=== PATIENT | male | born 1985 | race Hispanic/Latino ===

== ENCOUNTER → 2024-06-06 14:18 | Outpatient (CLI) | payer SELFPAY ==
[2024-06-06 16:33] LABS: Urine Chlamydia NOT DETECTED; Urine N gonorrhoeae NOT DETECTED
== END ==
PROVIDERS: Visit Provider Nurse Practitioner Family
DX: R30.0 Dysuria (principal); N48.89 Other specified disorders of penis
CPT/HCPCS: 87086; 87210; 87491; 87591

== ENCOUNTER → 2024-06-06 15:03 | Outpatient (CLI) | payer SELFPAY ==
[2024-06-07 15:21] LABS: Hepatitis B Surface Antigen NEGATIVE s/c (NEGATIVE)
[2024-06-07 15:37] LABS: HIV 1 & 2 Ab/Ag 4th Gen Combo NEGATIVE (NEGATIVE); Hep C Virus Ab w/Reflex Quant NEGATIVE s/c (NEGATIVE)
[2024-06-08 04:12] LABS: RPR Screen Non Reactive (Non Reactive)
== END ==
PROVIDERS: Referring Provider Nurse Practitioner Family; Visit Provider Nurse Practitioner Family
DX: Z72.51 High risk heterosexual behavior (principal); R30.0 Dysuria; N48.89 Other specified disorders of penis
CPT/HCPCS: 36415; 86592; 86695; 86696; 86803; 87086; 87210; 87340; 87389; 87491; 87591

== ENCOUNTER 2025-01-10 22:41 | Emergency (ER) | payer SELFPAY ==
[2025-01-10 22:52] VITALS: PULSE 108; O2SAT 97
--- NOTE | 2025-01-10 22:53 | DI.RAD.S_ITS ---
PROCEDURE: XR CHEST 1V INDICATIONS: Chest Pain TECHNIQUE: One view of the chest was acquired. COMPARISON: None. FINDINGS: Surgical changes and devices: None. Lungs and pleura: Lungs are clear. No pneumothorax. Question trace left pleural effusion. Mediastinum: Mediastinal contours appear normal. Heart size is normal. Bones and chest wall: No suspicious bony lesions. Overlying soft tissues appear unremarkable. IMPRESSION: Question trace left pleural effusion. Dictated by: Yohannes Brandon M.D. on 01/11/2025 at 0:52 Approved by: Yohannes Brandon M.D. on 01/11/2025 at 0:52
[2025-01-10 22:54] VITALS: BP 163/99; PULSE 110; RESP 26; TEMP 37; O2SAT 94; BMI 41.3
--- NOTE | 2025-01-10 22:58 | EKG_ITS ---
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
[2025-01-10 23:02] VITALS: PULSE 104; O2SAT 96
[2025-01-10] MEDS: ASPIRIN 81 MG CHEW TAB 324 MG PO (23:24)
[2025-01-10 23:26] LABS: Add Manual Diff / Slide Review NO; Hematocrit 41.7 % (41-53); Hemoglobin 14.3 g/dL (13.5-17.5); Lymphocytes Absolute Auto 2300 /uL (1100-4500); Mean Corpuscular HGB Conc 34.3 % (30-36); Mean Corpuscular Hemoglobin 30.5 PG (26-34); Mean Corpuscular Volume 88.8 fL (80-100); Platelet Count 314 X10^3/uL (150-400)
[2025-01-10 23:30] VITALS: PULSE 107; O2SAT 95
[2025-01-10 23:30] LABS: Alanine Aminotransferase 63 IU/L (<50); Albumin 4.4 g/dL (3.5-5.0); Albumin Globulin Ratio 1.3 (1.0-2.8); Alkaline Phosphatase 72 U/L (38-126); Blood Urea Nitrogen 14 mg/dL (9-20); Calcium 8.7 mg/dL (8.4-10.2); Carbon Dioxide 24 mmol/L (22-32); Chloride 106 mmol/L (98-107); Creatine Kinase 281 U/L (55-170); Estimated Glomerular Filt Rate > 60 mL/min (>60); Globulin 3.5 g/dL (1.7-4.1); Glucose 150 mg/dL (70-99); HEMOLYSIS 17 (0-50); Lipase 232 U/L (23-300); Magnesium 1.9 mg/dL (1.6-2.3); Potassium 4.1 mmol/L (3.4-5.1); Sodium 139 mmol/L (137-145); Total Protein 7.9 g/dL (6.3-8.2)
[2025-01-10 23:41] LABS: NT-proBNP (BNP-Adult 18+) < 20 pg/mL (<125); Troponin I < 0.012 ng/mL (0.01-0.034)
--- NOTE | 2025-01-10 23:41 | ED_ITS ---
HPI - Chest Pain General Chief Complaint: Chest Pain Stated Complaint: Back Pain, R Side Pain Time Seen by Provider: 01/10/25 23:04 Source: patient Mode of arrival: Ambulatory History of Present Illness HPI narrative: 39-year-old male with no prior history of reactive airways or blood clots or heart problems, complains of 2 days duration right anterolateral sharp chest pain, worse with deep inspiration, some associated shortness of breath. No trauma injury or new activities. 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 No history of asthma or inhalers. No medications tried for this discomfort. Co-worker with recent chest cold symptoms. Patient denies cough and fevers. No new activity at his work. No blood thinner medications, no prior history of blood clotting, no leg pain or swelling symptoms. No arm pain or swelling symptoms. Related Data Previous Rx's ?Medication ?Instructions ?Recorded naproxen 500 mg tablet 500 mg PO BID 7 days #14 tab s 01/11/25 Allergies Allergy/AdvReac Type Severity Reaction Status Date / Time No Known Drug Allergies Allergy Verified 01/10/25 22:54 Patient History Social History Smoking Status: Never smoker Smoking Status: Never smoker Exam Narrative Exam Narrative: GENERAL: Well-developed patient, in mild distress. HEAD: Atraumatic. Normocephalic. EYES: Pupils equal round and reactive. Extraocular motions intact. No scleral icterus. No injection or drainage. ENT: Nose without bleeding, purulent drainage. Throat without erythema, tonsillar hypertrophy or exudate. Airway patent. NECK: Trachea midline. Non tender CARDIOVASCULAR: Regular rate and rhythm without murmurs, gallops, or rubs. RESPIRATORY: Clear to auscultation. Breath sounds equal bilaterally. No wheezes, rales, or rhonchi. Right lateral posterior chest wall discomfort without crepitance or skin lesions, no fluctuance, no vesicles, no erythema or bruising. No paradoxical chest wall motion. No retractions or respiratory distress. GASTROINTESTINAL: Abdomen soft, non-tender, nondistended. EXTREMITIES: No edema or joint tenderness. BACK: Nontender without deformity or crepitance. No flank tenderness. NEURO: AOx3. Motor functions grossly nonfocal. SKIN: No rash or erythema of visible areas Initial Vital Signs Initial Vital Signs: Vital Signs Pulse Rate 108 H 01/10/25 22:52 Pulse Oximetry 97 01/10/25 22:52 Scores HEART Score Heart Score history: Slightly Suspicious Heart Score EKG: Normal Heart Score Age: < 45 years old Heart Score risk factors: No known risk factors Heart Score troponin: < or = to normal limit Heart Score Total: 0 WellsCarey Criteria for PE Clinical signs and symptoms of DVT: No PE is #1 Dx or equally likely: No Heart rate > 100: Yes Immobilization at least 3 days or surg in previous 4 weeks: No History of PE or DVT: No Hemoptysis: No Malignancy w/Treatment within 6 months or palliative: No Wells' PE Score total: 1.5 Course Orders Ordered: ED Orders 01/10/25 22:53 XR chest 1V Stat EKG-12 Lead Stat 01/10/25 23:10 Complete Blood Count AUTO DIFF Stat Comprehensive Metabolic Panel Stat D Dimer Stat Lipase Stat Magnesium Stat NT-proBNP (BNP-Adult 18+) Stat Troponin & CK Cardiac Panel Stat 01/11/25 00:15 Covid-19 + FLU A/B + RSV - PCR Stat 01/11/25 01:04 CT angio chest PE protocol Stat 01/11/25 01:05 CT abdomen pelvis w con Stat 01/11/25 01:45 Troponin I Urgent 01/11/25 02:42 US periph venous low extrem bi Stat Discontinued Medications Albuterol (Albuterol Hfa Prepack) 1 box MISC DIRECTED ONE Stop: 01/11/25 02:56 Last Admin: 01/11/25 03:34 Dose: 1 box Documented By: FABIOLA Aspirin (Aspirin 81 Mg Chew Tab) 324 mg PO NOW ONE Stop: 01/10/25 22:54 Last Admin: 01/10/25 23:24 Dose: 324 mg Documented By: FABIOLA Sodium Chloride (Normal Saline 0.9%) 1,000 mls @ 1,000 mls/hr IV BOLUS ONE Stop: 01/11/25 02:04 Last Infusion: 01/11/25 02:43 Dose: Infused Documented By: Admin: 01/11/25 01:31 Dose: 1,000 mls/hr Documented By: FABIOLA Ketorolac Tromethamine (Ketorolac 30 Mg/Ml Vial) 15 mg IV NOW ONE Stop: 01/11/25 02:57 Last Admin: 01/11/25 03:10 Dose: 15 mg Documented By: FABIOLA Vital Signs Vital signs: Vital Signs - 8 hr 01/10/25 22:52 01/10/25 22:54 01/10/25 23:02 Temperature 98.6 F Pulse Rate 108 H 110 H 104 H Respiratory Rate 26 H Blood Pressure 163/99 H Pulse Oximetry 97 94 96 Oxygen Delivery Method Room Air 01/10/25 23:30 01/11/25 00:00 01/11/25 00:14 Temperature Pulse Rate 107 H 103 H 99 H Respiratory Rate Blood Pressure Pulse Oximetry 95 96 96 Oxygen Delivery Method 01/11/25 00:14 01/11/25 00:30 01/11/25 01:00 Temperature Pulse Rate 95 H 96 H Respiratory Rate Blood Pressure 158/81 H Pulse Oximetry 95 95 Oxygen Delivery Method 01/11/25 01:42 01/11/25 01:43 01/11/25 01:43 Temperature Pulse Rate 96 H 92 H Respiratory Rate Blood Pressure 126/66 Pulse Oximetry 96 Oxygen Delivery Method 01/11/25 02:00 01/11/25 02:00 01/11/25 02:30 Temperature Pulse Rate 90 77 Respiratory Rate Blood Pressure 126/72 Pulse Oximetry 96 94 Oxygen Delivery Method 01/11/25 02:30 01/11/25 03:00 01/11/25 03:00 Temperature Pulse Rate 87 Respiratory Rate Blood Pressure 115/64 121/59 L Pulse Oximetry 96 Oxygen Delivery Method 01/11/25 03:23 01/11/25 03:31 01/11/25 03:33 Temperature Pulse Rate 87 84 Respiratory Rate Blood Pressure 119/49 L Pulse Oximetry 96 97 Oxygen Delivery Method 01/11/25 04:00 01/11/25 04:00 Temperature Pulse Rate 84 Respiratory Rate Blood Pressure 110/60 Pulse Oximetry 95 Oxygen Delivery Method MDM - Chest Pain Lab Data Attestation: I reviewed the patient's lab results. Lab results narrative: White blood cell count 13,000, hemoglobin 14.3, platelets adequate. Glucose 150. Normal renal function, serum CO2, electrolytes. Slight ALT elevation, other liver functions normal. Lipase normal. Troponin negative/unmeasurable. BNP negative/unmeasurable. D-dimer 1767 elevated. 01/10/25 23:10 01/10/25 23:10 Labs: Lab Results 01/10/25 01/11/25 01/11/25 Range/Units 23:10 00:15 01:45 WBC 13.0 H (4.5-11.0) X10^3/uL RBC 4.69 (4.5-5.9) X10^6/uL Hgb 14.3 (13.5-17.5) g/dL Hct 41.7 (41-53) % MCV 88.8 (80-100) fL MCH 30.5 (26-34) PG MCHC 34.3 (30-36) % RDW 13.7 (11.6-14.8) % Plt Count 314 (150-400) X10^3/uL Neut % (Auto) 68.8 (50-75) % Lymph % (Auto) 17.6 L (25-40) % [place] % (Auto) 9.6 (3-14) % Eos % (Auto) 2.7 (2-4) % Baso % (Auto) 1.3 (0-2) % Neut # (Auto) 9000 H (1055-7407) /uL Lymph # (Auto) 2300 (8181-2326) /uL [place] # (Auto) 1300 H (0-900) /uL Eos # (Auto) 300 (0-450) /uL Baso # (Auto) 200 H (0-100) /uL D-Dimer 1767 H (<500) ng/ml Sodium 139 (137-145) mmol/L Potassium 4.1 (3.4-5.1) mmol/L Chloride 106 (98-107) mmol/L Carbon Dioxide 24 (22-32) mmol/L BUN 14 (9-20) mg/dL Creatinine 0.96 (0.66-1.25) mg/dL Estimated GFR > 60 (>60) mL/min BUN/Creatinine Ratio 14.6 (6-22) Glucose 150 H (70-99) mg/dL Calcium 8.7 (8.4-10.2) mg/dL Magnesium 1.9 (1.6-2.3) mg/dL Total Bilirubin 1.2 (0.2-1.3) mg/dL AST 44 (17-59) IU/L ALT 63 H (<50) IU/L Alkaline Phosphatase 72 (38-126) U/L Total Creatine Kinase 281 H (55-170) U/L Troponin I < 0.012 < 0.012 (0.01-0.034) ng/mL NT-Pro-B Natriuret Pep < 20 (<125) pg/mL Total Protein 7.9 (6.3-8.2) g/dL Albumin 4.4 (3.5-5.0) g/dL Globulin 3.5 (1.7-4.1) g/dL Albumin/Globulin Ratio 1.3 (1.0-2.8) Lipase 232 (23-300) U/L SARS-CoV-2 (PCR) Negative (Negative) Influenza A (RT-PCR) Flu a negative (NEGATIVE) Influenza B (RT-PCR) Flu b negative (NEGATIVE) RSV (PCR) Negative (Negative) Imaging Data CTA chest PE protocol: Radiologist's Impression: [address] [address] [address] Scan Report Signed Patient: Barrie Stauffer MR#: [id number] : 1985 Acct:[id number] Age/Sex: 39 / M Date of Service: 01/11/25 Loc: ED Accession Number: [id number] Procedure: CT angio chest PE protocol Ordering Provider: Hansel Mercedes MD PROCEDURE: CT ANGIO CHEST PE PROTOCOL INDICATIONS: right pleuritic CP, Ddimer 1700s TECHNIQUE: After the administration of intravenous contrast, 2 mm thick sections acquired from the pulmonary apices to the posterior costophrenic angles. 3-dimensional maximum intensity projection (MIP) coronal and sagittal reformats were then acquired through the thorax. For radiation dose reduction, the following was used: automated exposure control, adjustment of mA and/or kV according to patient size. COMPARISON: [facility], CT, CT ABDOMEN PELVIS W CON, 01/11/2025, 1:14. FINDINGS: Image quality: Diagnostic. Pulmonary arteries: Pulmonary arteries are normal in size, and demonstrate no intraluminal filling defects to suggest central pulmonary embolism. Lower Neck: No enlarged lymph nodes. Thyroid: No thyroid nodules which require sonographic follow up, per consensus guidelines. Axillae: No enlarged lymph nodes. Chest Wall: Unremarkable. Bones: No suspicious osseous lesion. Lungs and Pleura: No pneumothorax. Trace right pleural fluid. Bibasilar atelectasis and/or scarring. No significant acute airspace opacity. No significant pulmonary nodules are seen. Heart: Heart size is normal. No pericardial effusion. Thoracic Vessels: No aortic aneurysm. No dissection is seen. Mediastinum and [place]: No enlarged lymph nodes. Esophagus: No wall thickening. No hiatal hernia. Upper Abdomen: Dictated separately. IMPRESSION: 1. No pulmonary embolism. 2. Bibasilar atelectasis or scarring. Trace right pleural fluid. Dictated by: Yohannes Brandon M.D. on 01/11/2025 at 2:27 Approved by: Yohannes Brandon M.D. on 01/11/2025 at 2:32 CT abdomen and pelvis with IV contrast: Radiologist's Impression: [place] [address] CT Scan Report Signed Patient: Barrie Stauffer MR#: [id number] : 1985 Acct:[id number] Age/Sex: 39 / M Date of Service: 01/11/25 Loc: ED Accession Number: [id number] Procedure: CT abdomen pelvis w con Ordering Provider: Hansel Mercedes MD PROCEDURE: CT ABDOMEN PELVIS W CON INDICATIONS: right chest flank pain TECHNIQUE: After the administration of intravenous contrast, axial sections acquired from the lung bases to the pubic symphysis. Coronal and sagittal reformats were performed. For radiation dose reduction, the following was used: automated exposure control, adjustment of mA and/or kV according to patient size. COMPARISON: None. FINDINGS: Image quality: Diagnostic. Lower Chest: Bibasilar atelectasis. Trace pleural effusions. Left calcified granuloma. ABDOMEN: Liver: No solid mass. Hepatic steatosis. Gallbladder: Decompressed. No calcified stones. Biliary ducts: No biliary dilation. Pancreas: No ductal dilation. Spleen: Size is within normal limits. Adrenal Glands: No adrenal nodules. Kidneys and Ureters: No hydronephrosis. No solid mass. No complex renal cystic lesion which requires follow up. Stomach and Bowel: Normal colonic caliber, without significant wall thickening. Normal appendix. No diverticulitis. No small bowel obstruction. The stomach is unremarkable. Peritoneum: No abnormal intraperitoneal fluid. No free air. Ventral Wall: No significant ventral hernia. Abdominal Nodes: No retroperitoneal or mesenteric adenopathy by size criteria. Vessels: Aorta and inferior vena cava are normal in size. PELVIS: Pelvic Organs: Unremarkable. Bladder: No bladder wall thickening, accounting for underdistention. Pelvic Nodes: No enlarged lymph nodes. Miscellaneous: No inguinal hernias are seen. Bones: Sclerosis with cystic change at the right femoral neck, (). No cortical disruption. No periosteal reaction. IMPRESSION: 1. No acute inflammatory process identified. 2. Hepatic steatosis. 3. Trace pleural effusions. 4. Sclerosis and cystic change at the right femoral neck. Indeterminate clinical significance. -MRI could be considered for further evaluation. Dictated by: Yohannes Brandon M.D. on 01/11/2025 at 1:54 Approved by: Yohannes Brandon M.D. on 01/11/2025 at 2:01 ECG Data Attestation: I personally reviewed and interpreted this ECG as follows: Interpretation: 2258, sinus tachycardia with rate 104, no obvious ST segment elevation or depression changes. NH 168, QRS 100, QTC 444. 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 DDx consider chest wall/costochondritis, muscular strain, viral illness, reactive airways, pneumonia, pulmonary embolism, ACS, spontaneous pneumothorax, subdiaphragmatic process, other. EKG, chest x-ray, labs pending. IV Toradol. Oral aspirin. Heart score equals 0. PERC rule does not apply, HR>100. Wells criteria 1.5 low risk, but HR>100 noted in context pleuritic chest pain. Send D-dimer. EKG without obvious ischemic changes, does show sinus tachycardia with rate 104. Chest x-ray shows no acute changes, see radiology report. Lab data: White blood cell count [address]474, hemoglobin 14.3, platelets adequate. Glucose 150. Normal renal function, serum CO2, electrolytes. Slight ALT elevation, other liver functions normal. Lipase normal. Troponin negative/unmeasurable. BNP negative/unmeasurable. COVID flu RSV negative. VTE consideration. Wells criteria 1.5 low risk, but heart rate greater than 100 noted in context pleuritic chest pain. D-dimer added, was 1767 elevated. Discussed dimer elevation and tachypnea and tachycardia, concern for pulmonary embolism. Patient expressed understanding, willing to proceed with advanced imaging. CTA chest PE protocol ordered. CTA chest. IMPRESSION: 1. No pulmonary embolism.2. Bibasilar atelectasis or scarring. Trace right pleural fluid. See radiology report. CT abdomen and pelvis with IV contrast. IMPRESSION: 1. No acute inflammatory process identified.2. Hepatic steatosis.3. Trace pleural effusions.4. Sclerosis and cystic change at the right femoral neck. Indeterminate clinical significance. MRI could be considered for further evaluation. See radiology report. Copies of printed CTA/CT reports given to patient, discussed findings. Ultrasound venous Doppler bilateral lower extremities ordered. Ultrasound venous Dopplers also negative for lower extremity DVT. Interval repeat troponin also negative/unmeasurable. Suspect chest wall etiology of discomfort, with subsequent atelectasis. Unclear significance of trace right pleural fluid. Trial of naproxen anti-inflammatory pain medication. Trial of albuterol/spacer 2 puffs 4 times daily and then as needed, dispensed albuterol and spacer from emergency department. Discharged home with family. Advised recheck with PCP later this week. Further workup as an outpatient for now. Return precautions discussed. Discharged home with . Discharge Plan Departure Patient Disposition: Home Clinical Impression: Chest pain, Chest wall pain, Atelectasis Activity Restrictions/Additional Instructions: Right-sided chest discomfort of unclear cause, possibly musculoskeletal. Some mild tenderness on exam, no injury or trauma. No wheezing or crackles on lung exam. Chest x-ray unrevealing. EKG and blood tests not suggestive of heart attack at this time. D-dimer was markedly elevated, further evaluation for blood clots indicated. CT angiogram of the chest did not show any blood clots to the lungs, did show scant amount of small fluid on the right side of unclear significance, unclear if related to your discomfort on that side, consider further follow up as an outpatient. There was no mention of any pneumonia or other acute changes in the chest. CT scanning of the abdomen and pelvis was also done to look for other sources of clots or any acute process that might account for the right-sided chest/truncal discomfort, which also did not reveal any acute changes. Ultrasound of the leg veins did not show any blood clots present. IV Toradol and oral aspirin given, symptoms seemed to be improving. CT chest did show small amount of atelectasis, localized small areas of collapse, which can be due to the chest discomfort and lack of deep breathing due to pain. Trial of pain medication naproxen. Trial of albuterol with spacer, dispensed in the emergency department, 2 puffs 4 times daily for this next 1 week and then as needed. Consider recheck of symptoms with your regular doctor later this week. Further workup as an outpatient for now. Return to this/nearest emergency department for any change worsening symptoms or any concerns prior. Prescriptions: New naproxen 500 mg tablet 500 mg PO BID 7 Days Qty: 14 0RF Referrals: Miscellaneous,Doctor, [Primary Care Provider, Medical] Stand Alone Forms: Patient Portal/API
[2025-01-11] VITALS (13 sets, daily range): BP systolic 110–158; BP diastolic 49–81; PULSE 77–103; O2SAT 94–97
--- NOTE | 2025-01-11 01:04 | DI.CT.S_ITS ---
PROCEDURE: CT ANGIO CHEST PE PROTOCOL INDICATIONS: right pleuritic CP, Ddimer 1700s TECHNIQUE: After the administration of intravenous contrast, 2 mm thick sections acquired from the pulmonary apices to the posterior costophrenic angles. 3-dimensional maximum intensity projection (MIP) coronal and sagittal reformats were then acquired through the thorax. For radiation dose reduction, the following was used: automated exposure control, adjustment of mA and/or kV according to patient size. COMPARISON: [facility], CT, CT ABDOMEN PELVIS W CON, 01/11/2025, 1:14. FINDINGS: Image quality: Diagnostic. Pulmonary arteries: Pulmonary arteries are normal in size, and demonstrate no intraluminal filling defects to suggest central pulmonary embolism. Lower Neck: No enlarged lymph nodes. Thyroid: No thyroid nodules which require sonographic follow up, per consensus guidelines. Axillae: No enlarged lymph nodes. Chest Wall: Unremarkable. Bones: No suspicious osseous lesion. Lungs and Pleura: No pneumothorax. Trace right pleural fluid. Bibasilar atelectasis and/or scarring. No significant acute airspace opacity. No significant pulmonary nodules are seen. Heart: Heart size is normal. No pericardial effusion. Thoracic Vessels: No aortic aneurysm. No dissection is seen. Mediastinum and [place]: No enlarged lymph nodes. Esophagus: No wall thickening. No hiatal hernia. Upper Abdomen: Dictated separately. IMPRESSION: 1. No pulmonary embolism. 2. Bibasilar atelectasis or scarring. Trace right pleural fluid. Dictated by: Yohannes Brandon M.D. on 01/11/2025 at 2:27 Approved by: Yohannes Brandon M.D. on 01/11/2025 at 2:32
--- NOTE | 2025-01-11 01:05 | DI.CT.S_ITS ---
PROCEDURE: CT ABDOMEN PELVIS W CON INDICATIONS: right chest flank pain TECHNIQUE: After the administration of intravenous contrast, axial sections acquired from the lung bases to the pubic symphysis. Coronal and sagittal reformats were performed. For radiation dose reduction, the following was used: automated exposure control, adjustment of mA and/or kV according to patient size. COMPARISON: None. FINDINGS: Image quality: Diagnostic. Lower Chest: Bibasilar atelectasis. Trace pleural effusions. Left calcified granuloma. ABDOMEN: Liver: No solid mass. Hepatic steatosis. Gallbladder: Decompressed. No calcified stones. Biliary ducts: No biliary dilation. Pancreas: No ductal dilation. Spleen: Size is within normal limits. Adrenal Glands: No adrenal nodules. Kidneys and Ureters: No hydronephrosis. No solid mass. No complex renal cystic lesion which requires follow up. Stomach and Bowel: Normal colonic caliber, without significant wall thickening. Normal appendix. No diverticulitis. No small bowel obstruction. The stomach is unremarkable. Peritoneum: No abnormal intraperitoneal fluid. No free air. Ventral Wall: No significant ventral hernia. Abdominal Nodes: No retroperitoneal or mesenteric adenopathy by size criteria. Vessels: Aorta and inferior vena cava are normal in size. PELVIS: Pelvic Organs: Unremarkable. Bladder: No bladder wall thickening, accounting for underdistention. Pelvic Nodes: No enlarged lymph nodes. Miscellaneous: No inguinal hernias are seen. Bones: Sclerosis with cystic change at the right femoral neck, (5/). No cortical disruption. No periosteal reaction. IMPRESSION: 1. No acute inflammatory process identified. 2. Hepatic steatosis. 3. Trace pleural effusions. 4. Sclerosis and cystic change at the right femoral neck. Indeterminate clinical significance. -MRI could be considered for further evaluation. Dictated by: Yohannes Brandon M.D. on 01/11/2025 at 1:54 Approved by: Yohannes Brandon M.D. on 01/11/2025 at 2:01
[2025-01-11 01:07] LABS: Influenza A - CEPHEID Flu A NEGATIVE (NEGATIVE); Influenza B - CEPHEID Flu B NEGATIVE (NEGATIVE)
[2025-01-11 01:30] LABS: COVID-19 CEPHEID 4-PLEX PCR Negative (Negative)
[2025-01-11] MEDS: SODIUM CHLORIDE 0.9% 1,000 ML 1000 ML IV (01:31)
[2025-01-11 02:26] LABS: Troponin I < 0.012 ng/mL (0.01-0.034)
--- NOTE | 2025-01-11 02:42 | DI.US.S_ITS ---
PROCEDURE: US PERIPH VENOUS LOW EXTREM BI INDICATIONS: CTA Chest neg, Ddimer 1700s TECHNIQUE: Real-time imaging, as well as color and pulse Doppler interrogation, were performed of the deep veins of both legs from the inguinal ligament to the popliteal fossa, with documentation of the visualized calf veins. COMPARISON: None. FINDINGS: Right: The common femoral, femoral, popliteal, and the visualized calf veins are normally compressible, and free of intraluminal thrombus. Color and pulse Doppler demonstrate normal phasic intravascular flow. There is normal augmentation response to distal compression maneuver. Left: The common femoral, femoral, popliteal, and the visualized calf veins are normally compressible, and free of intraluminal thrombus. Color and pulse Doppler demonstrate normal phasic intravascular flow. There is normal augmentation response to distal compression maneuver. IMPRESSION: No findings of deep venous thrombosis in either lower extremity. No changes from the preliminary report. Dictated by: Jaime Melton M.D. on 01/11/2025 at 6:41 Approved by: Jaime Melton M.D. on 01/11/2025 at 6:42
[2025-01-11] MEDS: KETOROLAC 30 MG/ML VIAL 15 MG IV (03:10)
[2025-01-11] MEDS: ALBUTEROL HFA PREPACK 1 BOX MISC (03:34)
== END 2025-01-11 04:23 | disposition home or self-care (01) ==
PROVIDERS: Emergency Provider Emergency Medicine
DX: R07.9 Chest pain, unspecified (principal); J98.11 Atelectasis; R00.0 Tachycardia, unspecified; R06.02 Shortness of breath
CPT/HCPCS: 36415; 71045; 71275; 74177; 80053; 82550; 83690; 83735; 83880; 84484; 85025; 85379; 87637; 93005; 93010; 93970; 96361; 96374; 99284; J1885; J7030; Q9967

== ENCOUNTER 2025-01-12 20:51 | Emergency (ER) | payer SELFPAY ==
[2025-01-12 21:14] VITALS: BP 167/88; PULSE 120; RESP 20; TEMP 36.6; O2SAT 96
--- NOTE | 2025-01-12 21:35 | EKG_ITS ---
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
--- NOTE | 2025-01-12 21:42 | ED_ITS ---
HPI - Back Pain/Injury General Chief Complaint: Back Pain/Injury Stated Complaint: chest/back pain sob x 4 days Time Seen by Provider: 01/12/25 21:38 Source: patient History of Present Illness HPI Narrative: 39-year-old male seen by me yesterday for right flank and chest discomfort with shortness of breath, evaluation then included D-dimer that was elevated, CT angiogram of the chest and CT IV contrast abdomen and pelvis imaging unrevealing for any acute process, EKG and serial troponins negative that visit as well, discharged home. Seemed to be doing well at home, had dinner at 4:00 p.m., over the last couple of hours has increasing right-sided flank pain again, also some right upper quadrant abdominal discomfort. No nausea or vomiting. No injury trauma new activities. No diarrhea. No black or red stools. Related Data Previous Rx's ?Medication ?Instructions ?Recorded naproxen 500 mg tablet 500 mg PO BID 7 days #14 tab s 01/11/25 omeprazole 20 mg capsule,delayed 20 mg PO DAILY upper abdominal 01/13/25 release pain 30 days #30 caps sucralfate 1 gram tablet (Carafate) 1 g PO BID #30 tab s 01/13/25 Allergies Allergy/AdvReac Type Severity Reaction Status Date / Time No Known Drug Allergies Allergy Verified 01/12/25 21:14 Exam Narrative Exam Narrative: GENERAL: Well-developed patient, in mild distress. HEAD: Atraumatic. Normocephalic. EYES: Pupils equal round and reactive. Extraocular motions intact. No scleral icterus. No injection or drainage. ENT: Nose without bleeding, purulent drainage. Throat without erythema, tonsillar hypertrophy or exudate. Airway patent. NECK: Trachea midline. Non tender CARDIOVASCULAR: Regular rate and rhythm without murmurs, gallops, or rubs. RESPIRATORY: Clear to auscultation. Breath sounds equal bilaterally. No wheezes, rales, or rhonchi. GASTROINTESTINAL: Abdomen nonrigid, mild tenderness right upper quadrant, normal bowel tones without rushes or tinkles. EXTREMITIES: No edema or joint tenderness. BACK: Nontender without deformity or crepitance. No flank tenderness. NEURO: AOx3. Motor functions grossly nonfocal. SKIN: No rash or erythema of visible areas Initial Vital Signs Initial Vital Signs: Vital Signs Temperature 98 F 01/12/25 21:14 Pulse Rate 120 H 01/12/25 21:14 Respiratory Rate 20 01/12/25 21:14 Blood Pressure 167/88 H 01/12/25 21:14 Pulse Oximetry 96 01/12/25 21:14 Oxygen Delivery Method Room Air 01/12/25 21:14 Course Orders Ordered: ED Orders 01/12/25 21:43 XR chest 1V Stat EKG-12 Lead Stat 01/12/25 21:55 US abdomen limited Stat 01/12/25 22:05 Complete Blood Count AUTO DIFF Stat Comprehensive Metabolic Panel Stat Lipase Stat NT-proBNP (BNP-Adult 18+) Stat Troponin I Stat 01/13/25 00:25 EKG-12 Lead Stat Discontinued Medications Hydrocodone Bitart/Acetaminophen (Hydrocodone/Acet 5/325 Prepack) 1 bottle MISC DIRECTED ONE Stop: 01/13/25 02:50 Last Admin: 01/13/25 02:57 Dose: 1 bottle Documented By: BENNIE Famotidine (Famotidine 20 Mg/2 Ml Vial) 20 mg IV NOW ARLEY Last Admin: 01/12/25 22:03 Dose: 20 mg Documented By: Hydromorphone HCl (Hydromorphone 1 Mg/Ml Syringe) 1 mg IV NOW ONE Stop: 01/12/25 21:45 Last Admin: 01/12/25 21:54 Dose: 1 mg Documented By: BENNIE Ketorolac Tromethamine (Ketorolac 30 Mg/Ml Vial) 15 mg IV NOW ONE Stop: 01/12/25 21:45 Last Admin: 01/12/25 21:53 Dose: 15 mg Documented By: BENNIE Methocarbamol (Methocarbamol 500 Mg Tablet) 500 mg PO NOW ONE Stop: 01/12/25 21:50 Last Admin: 01/12/25 21:54 Dose: 500 mg Documented By: BENNIE Ondansetron HCl (Ondansetron 4 Mg/2 Ml Inj) 4 mg IV NOW ONE Stop: 01/12/25 21:45 Last Admin: 01/12/25 21:53 Dose: 4 mg Documented By: BENNIE Vital Signs Vital signs: Vital Signs - 8 hr 01/13/25 02:25 Pulse Rate 78 Respiratory Rate 18 Blood Pressure 125/70 Pulse Oximetry 98 MDM - Back Pain/Injury Lab Data Attestation: I reviewed the patient's lab results. Lab results narrative: White blood cell count 28602, hemoglobin 14.8, platelets adequate. Glucose 111. Normal renal function, serum potassium. Sodium 135 slight low. Serum CO2 21 slight low. Total bilirubin 1.8 slight elevation, other liver functions normal. Lipase 136 normal. Troponin negative/unmeasurable. BNP negative/unmeasurable. Urine dip negative. 01/12/25 22:05 01/12/25 22:05 Labs: Lab Results 01/12/25 Range/Units 22:05 WBC 16.2 H (4.5-11.0) X10^3/uL RBC 4.84 (4.5-5.9) X10^6/uL Hgb 14.8 (13.5-17.5) g/dL Hct 42.8 (41-53) % MCV 88.4 (80-100) fL MCH 30.6 (26-34) PG MCHC 34.6 (30-36) % RDW 13.4 (11.6-14.8) % Plt Count 330 (150-400) X10^3/uL Neut % (Auto) 79.9 H (50-75) % Lymph % (Auto) 7.5 L (25-40) % [place] % (Auto) 11.4 (3-14) % Eos % (Auto) 0.9 L (2-4) % Baso % (Auto) 0.3 (0-2) % Neut # (Auto) 61485 H (5926-5801) /uL Lymph # (Auto) 1200 (1641-5548) /uL [place] # (Auto) 1900 H (0-900) /uL Eos # (Auto) 100 (0-450) /uL Baso # (Auto) 100 (0-100) /uL Sodium 135 L (137-145) mmol/L Potassium 4.3 (3.4-5.1) mmol/L Chloride 103 (98-107) mmol/L Carbon Dioxide 21 L (22-32) mmol/L BUN 17 (9-20) mg/dL Creatinine 0.86 (0.66-1.25) mg/dL Estimated GFR > 60 (>60) mL/min BUN/Creatinine Ratio 19.8 (6-22) Glucose 111 H (70-99) mg/dL Calcium 9.4 (8.4-10.2) mg/dL Total Bilirubin 1.8 H (0.2-1.3) mg/dL AST 40 (17-59) IU/L ALT 50 H (<50) IU/L Alkaline Phosphatase 70 (38-126) U/L Troponin I < 0.012 (0.01-0.034) ng/mL NT-Pro-B Natriuret Pep < 20 (<125) pg/mL Total Protein 8.5 H (6.3-8.2) g/dL Albumin 4.7 (3.5-5.0) g/dL Globulin 3.8 (1.7-4.1) g/dL Albumin/Globulin Ratio 1.2 (1.0-2.8) Lipase 136 (23-300) U/L Urine Dip Bedside Urine Glucose Negative Bedside Urine Bilirubin - Negative Bedside Urine Ketone + 15 Urine Specific [place] 1.005 Bedside Urine Occult Blood - Negative Bedside Urine pH 6 Bedside Urine Protein - Negative Bedside Urine Urobilinogen - Negative Bedside Urine Nitrite - Negative Bedside Urine Leukocytes - Negative Esterase ECG Data Attestation: I personally reviewed and interpreted this ECG as follows: Interpretation: 0031, normal sinus rhythm with rate of 86, no obvious ST segment elevation or depression changes. MS 166, QRS 102, QTC 433. MDM Narrative Medical decision making narrative: 39-year-old male seen here by me yesterday with 2 days duration right flank and chest discomfort, D-dimer elevated, CTA chest negative for PE or acute thoracic process, CT abdomen and pelvis negative as well, EKG and troponins negative, discharged home. Dinner at 4:00 p.m., now having right upper quadrant and right flank pain. Consider biliary colic, could have non radiopaque gallstones. Right upper quadrant ultrasound ordered. Keep NPO. IV fluid bolus, IV Toradol, IV Dilaudid/Zofran, IV Pepcid. Lab data: White blood cell count 09071, hemoglobin 14.8, platelets adequate. Glucose 111. Normal renal function, serum potassium. Sodium 135 slight low. Serum CO2 21 slight low. Total bilirubin 1.8 slight elevation, other liver functions normal. Lipase 136 normal. Troponin negative/unmeasurable. BNP negative/unmeasurable. Urine dip negative. Ultrasound right upper quadrant abdomen no gallstones, no thickening or pericholecystic fluid described. See radiology report. Symptoms improved. Unclear etiology. Recent CTA chest, CT abdomen and pelvis imaging yesterday, with right upper quadrant ultrasound unrevealing today. Consider PUD, trial of omeprazole/Carafate antacid regimen, consider endoscopy in follow up, given contact information for local general surgery. Might need referral from PCP. Discontinue previous naproxen prescription from previous visit intended to treat possible musculoskeletal pain, in case this might be causing or exacerbating duodenitis or other acid related upper abdominal problem. Discharged home with family. Return precautions discussed. Discharge Plan Departure Patient Disposition: Home Clinical Impression: Abdominal pain Instructions: DI for Abdominal Pain-Adult Activity Restrictions/Additional Instructions: Right-sided abdominal pain of unclear etiology. Seen here yesterday with right- sided chest and flank pain with CT angiogram of the chest and CT abdomen and pelvis imaging not revealing for any acute process. Symptoms seemed to be better, tonight after eating you had right upper quadrant abdominal pain. Labs again sent nonspecific. Ultrasound of the right upper quadrant abdomen performed, which did not show any gallstones or any acute changes. Unclear cause of your symptoms. It still might be possible to have an ulcer or acid related problem, since these conditions do not readily show up on CT scanning or ultrasound imaging studies. Consider trial of omeprazole antacid with Carafate acid binder medications, prescription sent to your pharmacy. Consider upper endoscopy in follow up. Follow up with surgery Clinic, contact information given for Dr. Lane and Dr. Vaca of [place] surgeon. Call their office later this morning during regular hours for close follow up. Consider stopping of the naproxen for now, which can inflame the duodenum and stomach. Take Tylenol as needed for pain control. Home pack of hydrocodone/acetaminophen given if needed for additional pain relief. Further testing and evaluation as an outpatient for now. Return to this/nearest emergency department for any change worsening symptoms or any concerns prior. Prescriptions: New omeprazole 20 mg capsule,delayed release(DR/EC) 20 mg PO DAILY 30 Days Qty: 30 0RF sucralfate [Carafate] 1 gram tablet 1 g PO BID Qty: 30 0RF No Action naproxen 500 mg tablet 500 mg PO BID 7 Days Qty: 14 0RF Referrals: Raymond Lane MD [Physician, General Surgery] Mika Vaca MD [Physician, General Surgery] Stand Alone Forms: Patient Portal/API
--- NOTE | 2025-01-12 21:43 | DI.RAD.S_ITS ---
PROCEDURE: XR CHEST 1V INDICATIONS: chest flank pain TECHNIQUE: One view of the chest was acquired. COMPARISON: [facility], CT, CT ANGIO CHEST PE PROTOCOL, 01/11/2025, 1:14. [facility], CR, XR CHEST 1V, 01/10/2025, 22:51. FINDINGS: Surgical changes and devices: None. Lungs and pleura: Bibasilar opacities. Low lung volumes. No significant pleural effusions or pneumothorax. Mediastinum: Mediastinal contours appear unchanged. Heart size is normal. Bones and chest wall: No suspicious bony lesions. Overlying soft tissues appear unremarkable. IMPRESSION: Low lung volumes. Bibasilar opacities. Favor atelectasis. Dictated by: Yohannes Brandon M.D. on 01/13/2025 at 0:26 Approved by: Yohannes Brandon M.D. on 01/13/2025 at 0:27
[2025-01-12] MEDS: ONDANSETRON 4 MG/2 ML INJ IV (21:53)
[2025-01-12] MEDS: KETOROLAC 30 MG/ML VIAL 15 MG IV (21:53)
--- NOTE | 2025-01-12 21:55 | DI.US.S_ITS ---
PROCEDURE: US ABDOMEN LIMITED INDICATIONS: RUQ Abd pain, yest had CTA/CT studies neg TECHNIQUE: Real-time scanning was performed of the abdominal and retroperitoneal organs, with image documentation. COMPARISON: None. FINDINGS: Liver: Liver is normal in size and homogeneous in echotexture. Gallbladder: No gallstones. No wall thickening. No pericholecystic edema. Negative sonographic Morfin's sign. Biliary ducts: Intrahepatic bile ducts are non-dilated. Extrahepatic bile duct caliber measures 5 mm. Normal is 6-7 mm or less in diameter, or 10 mm or less post-cholecystectomy. Pancreas: Not well seen. Miscellaneous: No free abdominal fluid. IMPRESSION: No acute cholecystitis. No gallstones. Dictated by: Yohannes Brandon M.D. on 01/13/2025 at 0:40 Approved by: Yohannes Brandon M.D. on 01/13/2025 at 0:42
[2025-01-12] MEDS: FAMOTIDINE 20 MG/2 ML VIAL IV (22:03)
[2025-01-12 22:23] LABS: Add Manual Diff / Slide Review NO; Hematocrit 42.8 % (41-53); Hemoglobin 14.8 g/dL (13.5-17.5); Lymphocytes Absolute Auto 1200 /uL (1100-4500); Mean Corpuscular HGB Conc 34.6 % (30-36); Mean Corpuscular Hemoglobin 30.6 PG (26-34); Mean Corpuscular Volume 88.4 fL (80-100); Platelet Count 330 X10^3/uL (150-400)
--- NOTE | 2025-01-12 22:24 | PC.NURSE ---
pt c/o RUQ pain that started after eating, pt has lobster boogiei tonight after which he started having sharp RUQ pain, abd is tender, pt has trouble finding a position of comfort with standing being the most comfortable position, denies any injury
[2025-01-12 22:27] LABS: Alanine Aminotransferase 50 IU/L (<50); Albumin 4.7 g/dL (3.5-5.0); Albumin Globulin Ratio 1.2 (1.0-2.8); Alkaline Phosphatase 70 U/L (38-126); Blood Urea Nitrogen 17 mg/dL (9-20); Calcium 9.4 mg/dL (8.4-10.2); Carbon Dioxide 21 mmol/L (22-32); Chloride 103 mmol/L (98-107); Estimated Glomerular Filt Rate > 60 mL/min (>60); Globulin 3.8 g/dL (1.7-4.1); Glucose 111 mg/dL (70-99); HEMOLYSIS 17 (0-50); Lipase 136 U/L (23-300); Potassium 4.3 mmol/L (3.4-5.1); Sodium 135 mmol/L (137-145); Total Protein 8.5 g/dL (6.3-8.2)
[2025-01-12 22:38] LABS: NT-proBNP (BNP-Adult 18+) < 20 pg/mL (<125); Troponin I < 0.012 ng/mL (0.01-0.034)
--- NOTE | 2025-01-13 00:25 | EKG_ITS ---
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
[2025-01-13 02:25] VITALS: BP 125/70; PULSE 78; RESP 18; O2SAT 98
== END 2025-01-13 03:07 | disposition home or self-care (01) ==
PROVIDERS: Emergency Provider Emergency Medicine
DX: J18.9 Pneumonia, unspecified organism (principal); J90 Pleural effusion, not elsewhere classified
CPT/HCPCS: 36415; 71045; 76705; 80053; 81003; 83690; 83880; 84484; 85025; 93005; 93010; 96374; 96375; 99284; J1171; J1885; J2405

== ENCOUNTER 2025-01-14 11:55 | Inpatient (IN) | payer SELFPAY ==
[2025-01-14] VITALS (31 sets, daily range): BP systolic 130–162; BP diastolic 69–100; PULSE 81–114; RESP 21–49; TEMP 35.6–36.6; O2SAT 88–94; BMI 41.3
--- NOTE | 2025-01-14 12:28 | EKG_ITS ---
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
--- NOTE | 2025-01-14 14:04 | ED.ABDPAIN ---
HPI - Abdominal Pain General Chief Complaint: Abdominal Pain Stated Complaint: abd pain Time Seen by Provider: 01/14/25 12:43 Source: patient Mode of arrival: Ambulatory History of Present Illness HPI narrative: Patient is a 39-year-old male with history of prediabetes presenting today with ongoing right-sided abdominal pain. He has been in the ED twice 1st on 01/10/2025 in the 2nd on 01/12/2025 had significant workup including multiple CTs ultrasound and blood work. High clinical suspicion for cholecystitis. Last time he was found to have leukocytosis of 16. Dr. Domingo dean actually called to tell me that he since this patient to the ER for further evaluation. Patient reports that he has a very pinpoint right upper quadrant pain it hurts to breathe hurts to move hurts to lay down it radiates up to his right shoulder. He has been chilled but no actual fever or sweating. No significant nausea or vomiting. He does report some shortness of breath with exertion but no cough. Related Data Home Medications ?Medication ?Instructions ?Recorded ?Confirmed betamethasone dipropionate 0.05 % topical DAILY 01/14/25 topical ointment Held on 01/14/25. Instructions: Provider's Order ketoconazole 2 % topical cream applic topical BID 01/14/25 Previous Rx's ?Medication ?Instructions ?Recorded naproxen 500 mg tablet 500 mg PO BID 7 days #14 tabs 01/11/25 Held on 01/14/25. Instructions: Provider's Order omeprazole 20 mg capsule,delayed 20 mg PO DAILY upper abdominal 01/13/25 release pain 30 days #30 caps Held on 01/14/25. Instructions: Provider's Order sucralfate 1 gram tablet (Carafate) 1 g PO BID #30 tabs 01/13/25 Allergies Allergy/AdvReac Type Severity Reaction Status Date / Time No Known Drug Allergies Allergy Verified 01/14/25 12:12 Patient History Medical History (Updated 01/14/25 @ 19:58 by Carla Rico DO) GERD (gastroesophageal reflux disease) Social History (Updated 01/14/25 @ 18:39 by Desirae Cesar MD) household members: spouse and family Smoking Status: Never smoker substance use type: does not use Exam Initial Vital Signs Initial Vital Signs: Vital Signs Temperature 98 F 01/14/25 12:12 Pulse Rate 114 H 01/14/25 12:12 Respiratory Rate 25 H 01/14/25 12:12 Blood Pressure 162/84 H 01/14/25 12:12 Pulse Oximetry 92 01/14/25 12:12 Oxygen Delivery Method Room Air 01/14/25 12:12 GENERAL: Alert 39-year-old male and in [no acute] distress. HEENT: Head atraumatic,EOMI, pupils reactive, face symmetric, [moist] mucous membranes CARDIOVASCULAR: Regular rate and rhythm without murmurs, rubs or gallops. RESPIRATORY: Slight tachypnea slightly decreased breath sounds ABDOMEN: Soft, significant tenderness in right upper quadrant positive Morfin's sign tender in epigastric region no pain no guarding or rebound no distention EXTREMITIES: Normal range of motion, no clubbing or edema. Neurovascularly intact NEUROLOGICAL: Alert and oriented x4.Normal gait and speech. Cranial nerves II through XII grossly intact. SKIN: Warm, dry, no laceration, no petechiae, no rashes or lesions. Course Orders Ordered: ED Orders 01/14/25 12:23 EKG-12 Lead Stat 01/14/25 14:21 Complete Blood Count AUTO DIFF Stat Comprehensive Metabolic Panel Stat Lactate (Lactic Acid) Stat Lipase Stat Trop I [Troponin I] Stat 01/14/25 14:47 Urine Microscopic Stat 01/14/25 15:17 MRCP [MR abdomen wo/w con] Stat 01/14/25 16:37 Blood Culture Stat Lactate (Lactic Acid) Stat Hydrocodone Bitart/Acetaminophen (Hydrocodone/Acet 5/325 Tablet) 1 tab PO Q4H PRN PRN Reason: Pain, Moderate (4-6) Hydrocodone Bitart/Acetaminophen (Hydrocodone/Acet 5/325 Tablet) 2 tab PO Q4H PRN PRN Reason: Pain, Severe (7-10) Hydromorphone HCl (Hydromorphone Hcl 0.5 Mg/0.5 Ml Syringe) 2 mg IV Q2H PRN PRN Reason: Pain, Severe (7-10) Last Admin: 01/14/25 18:46 Dose: 2 mg Documented By: Lactated Ringer's (Lactated Ringers) 1,000 mls @ 100 mls/hr IV CONT ARLEY Piperacillin Sod/Tazobactam (Sod 4.5 gm/ Sodium Chloride) 100 mls @ 25 mls/hr IV Q8H ARLEY Vancomycin HCl/Dextrose (Vancomycin) 2,000 mg in 400 mls @ 200 mls/hr IV NOW ONE Stop: 01/14/25 21:29 Vancomycin HCl (Vancomycin) 1,250 mg in 250 mls @ 125 mls/hr IV Q12H ARLEY Ibuprofen (Ibuprofen 600 Mg Tablet) 600 mg PO Q6H PRN PRN Reason: Fever/Mild Pain (1-3) Naloxone HCl (Naloxone 0.4 Mg/Ml Vial) 0.2 mg IV Q2MIN PRN PRN Reason: Opiate Reversal Ondansetron HCl (Ondansetron 4 Mg/2 Ml Inj) 4 mg IV Q8HR PRN PRN Reason: Nausea And Vomiting Vancomycin HCl (Vancomycin Per Pharmacy) 1 request MISC NOW PRN PRN Reason: Empyema Discontinued Medications Hydromorphone HCl (Hydromorphone 1 Mg/Ml Syringe) 1 mg IV NOW ONE Stop: 01/14/25 14:13 Last Admin: 01/14/25 14:25 Dose: 1 mg Documented By: RYAN Hydromorphone HCl (Hydromorphone Hcl 0.5 Mg/0.5 Ml Syringe) 0.5 mg IV Q2H PRN PRN Reason: Pain, Severe (7-10) Piperacillin Sod/Tazobactam (Sod 4.5 gm/ Sodium Chloride) 100 mls @ 200 mls/hr IV NOW ONE Stop: 01/14/25 15:49 Last Infusion: 01/14/25 17:42 Dose: Infused Documented By: Admin: 01/14/25 16:46 Dose: 200 mls/hr Documented By: RYAN Vital Signs Vital signs: Vital Signs - 8 hr 01/14/25 12:12 01/14/25 14:28 01/14/25 14:30 Temperature 98 F Pulse Rate 114 H 104 H 105 H Respiratory Rate 25 H Blood Pressure 162/84 H Pulse Oximetry 92 90 L 90 L Oxygen Delivery Method Room Air Oxygen Flow Rate 01/14/25 14:32 01/14/25 14:32 01/14/25 14:35 Temperature Pulse Rate 103 H 101 H Respiratory Rate 48 H 45 H Blood Pressure 141/74 H Pulse Oximetry 90 L 88 L Oxygen Delivery Method Room Air Oxygen Flow Rate 01/14/25 14:40 01/14/25 14:45 01/14/25 14:50 Temperature Pulse Rate 101 H 100 H 101 H Respiratory Rate 45 H 43 H 28 H Blood Pressure Pulse Oximetry 89 L 91 93 Oxygen Delivery Method Room Air Nasal Cannula Oxygen Flow Rate 2 01/14/25 14:55 01/14/25 15:00 01/14/25 15:00 Temperature Pulse Rate 100 H 97 H Respiratory Rate 24 22 Blood Pressure 139/69 Pulse Oximetry 93 93 Oxygen Delivery Method Nasal Cannula Oxygen Flow Rate 1 01/14/25 15:05 01/14/25 15:10 01/14/25 15:15 Temperature Pulse Rate 96 H 96 H 95 H Respiratory Rate 32 H 36 H 40 H Blood Pressure Pulse Oximetry 93 92 92 Oxygen Delivery Method Oxygen Flow Rate 01/14/25 15:20 01/14/25 15:25 01/14/25 15:30 Temperature Pulse Rate 101 H 99 H 103 H Respiratory Rate 49 H 44 H Blood Pressure Pulse Oximetry 93 93 93 Oxygen Delivery Method Oxygen Flow Rate 01/14/25 16:43 Temperature Pulse Rate Respiratory Rate Blood Pressure Pulse Oximetry Oxygen Delivery Method Nasal Cannula Oxygen Flow Rate MDM - Abdominal Pain Lab Data 01/14/25 14:21 01/14/25 14:21 Labs: Lab Results 01/14/25 01/14/25 01/14/25 Range/Units 14:21 14:47 16:37 WBC 25.4 H D (4.5-11.0) X10^3/uL RBC 5.00 (4.5-5.9) X10^6/uL Hgb 15.6 (13.5-17.5) g/dL Hct 44.7 (41-53) % MCV 89.4 (80-100) fL MCH 31.1 (26-34) PG MCHC 34.8 (30-36) % RDW 13.4 (11.6-14.8) % Plt Count 425 H (150-400) X10^3/uL Neut % (Auto) Not Reportable Lymph % (Auto) Not Reportable [place] % (Auto) Not Reportable Eos % (Auto) Not Reportable Baso % (Auto) Not Reportable Lymph # (Auto) Not Reportable [place] # (Auto) Not Reportable Baso # (Auto) Not Reportable Total Counted 100 Seg Neutrophils % 79.0 H (38-70) % Band Neutrophils % 8.0 H (3-7) % Lymphocytes % (Manual) 9.0 L (25-45) % Monocytes % (Manual) 4.0 (2-11) % Neutrophils # (Manual) 70180 H (3143-8275) /uL Platelet Estimate Increased on smear RBC Morphology Normal morphology PT 15.1 H (9.4-12.5) SECONDS INR 1.3 (0.9-1.3) Sodium 133 L (137-145) mmol/L Potassium 4.3 (3.4-5.1) mmol/L Chloride 99 (98-107) mmol/L Carbon Dioxide 24 (22-32) mmol/L BUN 12 (9-20) mg/dL Creatinine 1.06 (0.66-1.25) mg/dL Estimated GFR > 60 (>60) mL/min BUN/Creatinine Ratio 11.3 (6-22) Glucose 115 H (70-99) mg/dL Lactate 1.5 1.4 (0.7-2.1) mmol/L Calcium 9.1 (8.4-10.2) mg/dL Total Bilirubin 2.9 H (0.2-1.3) mg/dL AST 34 (17-59) IU/L ALT 40 (<50) IU/L Alkaline Phosphatase 59 (38-126) U/L Troponin I < 0.012 (0.01-0.034) ng/mL Total Protein 8.6 H (6.3-8.2) g/dL Albumin 4.5 (3.5-5.0) g/dL Globulin 4.1 (1.7-4.1) g/dL Albumin/Globulin Ratio 1.1 (1.0-2.8) Lipase 111 (23-300) U/L Urine RBC 0-1/hpf (0-5/HPF) Urine WBC 0-1/hpf (0-5/HPF) Ur Squamous Epith Cells 0-1 /hpf (0-5/HPF) Urine Bacteria Occasional (0-1) (None) Ur Culture Indicated? Cult not indicated Vol Urine Centrifuged 10ml (spun) Point of care testing: Urine Dip Bedside Urine Glucose Negative Bedside Urine Bilirubin - Negative Bedside Urine Ketone ++ 40 Urine Specific [place] 1.010 Bedside Urine Occult Blood + Bedside Urine pH 6.0 Bedside Urine Protein +/- 15 Bedside Urine Urobilinogen - Negative Bedside Urine Nitrite - Negative Bedside Urine Leukocytes - Negative Esterase Imaging Data MRCP: Radiologist's Impression: PROCEDURE: MR ABDOMEN WO/W CON INDICATIONS: Choledocholithiasis TECHNIQUE: Coronal HASTE, axial 2D FLASH in- and [id number]; axial breath-hold T2 FSE. Dynamic axial VIBE during the administration of contrast; post-contrast coronal VIBE or 2D FLASH with fat saturation from the hepatic dome to the iliac crests. Optional diffusion weighted imaging and ADC may be performed. COMPARISON: [facility], CR, XR CHEST 1V, 01/12/2025, 22:09. [facility], US, US ABDOMEN LIMITED, 01/12/2025, 22:45. FINDINGS: Image quality: This examination is limited by involuntary motion artifact. Lung bases: There is a moderate right-sided pleural effusion, with overlying atelectasis. Liver: No solid mass. Gallbladder: No gallstones or wall thickening. Biliary ducts: No biliary dilation. Pancreas: No ductal dilation. Spleen: Size is within normal limits. Adrenal Glands: No adrenal nodules. Kidneys and Ureters: No hydronephrosis. No solid mass. No complex renal cystic lesion which requires follow up. Stomach and Bowel: Normal colonic caliber, without significant wall thickening. Peritoneum: No abnormal intraperitoneal fluid. No free air. Ventral Wall: No hernia. Abdominal Nodes: No retroperitoneal or mesenteric adenopathy by size criteria. Vessels: Aorta and inferior vena cava are normal in size. Bones: No aggressive osseous abnormality. IMPRESSION: No biliary ductal dilatation is seen. No biliary ductal stones are seen. A moderate right-sided pleural effusion is seen. Motion limited study. Dictated by: Jose Faust M.D. on 01/14/2025 at 15:35 CT scan - chest: Radiologist's Impression: PROCEDURE: CT CHEST W CON INDICATIONS: right pleural effusion, high wbc high jose TECHNIQUE: After the administration of intravenous contrast, 5 mm thick sections acquired from the pulmonary apices to the posterior costophrenic angles. 1 mm axial lung, 5 mm thick coronal and sagittal reformats and 7 mm axial MIP were acquired. For radiation dose reduction, the following was used: automated exposure control, adjustment of mA and/or kV according to patient size. COMPARISON: [facility], CT, CT ANGIO CHEST PE PROTOCOL, 01/11/2025, 1:14. [facility], MR, MR ABDOMEN WO/W CON, 01/14/2025, 15:34. [facility], CR, XR CHEST 1V, 01/12/2025, 22:09. FINDINGS: Image quality: Diagnostic. Lower Neck: No enlarged lymph nodes. Thyroid: No thyroid nodules which require sonographic follow up, per consensus guidelines. Axillae: No enlarged lymph nodes. Chest Wall: Unremarkable. Bones: Unremarkable. Lungs and Pleura: There is a moderate right-sided pleural effusion seen, with a high degree of loculation. Associated overlying atelectasis can be seen. No pneumothorax is seen. The left lung appears clear. Heart: Heart size is normal. No pericardial effusion. Thoracic Vessels: The aorta and pulmonary arteries demonstrate normal size. Mediastinum and [place]: The mediastinum is shifted slightly to the left. No enlarged lymph nodes. Esophagus: No wall thickening. No hiatal hernia. Upper Abdomen: An enlarged, fatty infiltrated liver is seen. The visualized portions of the upper abdominal structures are otherwise unremarkable for imaging technique. IMPRESSION: A moderately sized left-sided pleural effusion is seen, with a high degree of loculation. This pleural effusion is clearly increased in size compared to the recent prior CT dated 01/11/2025. There is a mild degree of associated shift of the mediastinum to the left. Additional findings: Enlarged, fatty infiltrated liver. Dictated by: Jose Faust M.D. on 01/14/2025 at 16:46 Approved by: Jose Faust M.D. on 01/14/2025 at 16:48 ECG Data Attestation: I personally reviewed and interpreted this ECG as follows: Interpretation: Sinus rhythm rate 109 OK interval 144 QRS [address] changes no T-wave MDM Narrative Medical decision making narrative: MDM CC: Right upper quadrant pain Complicating co-morbidities: Healthy Data collected from patient Medical records reviewed: Last ED visits have been reviewed. 01/11/[address], no pulmonary embolism bibasilar atelectasis or scarring with trace right pleural effusion 01/11/[address] no inflammatory process hepatic steatosis trace pleural effusion 01/12/25 chest x-ray low lung volume 01/12/25 no acute cholecystitis no gallstones 01/12/2025 WBC count is 16 with a bilirubin of 1.8 normal liver enzymes negative troponin, BNP is less than 20 Differential considered: Acalculous cholecystitis, pneumonia, Exam documented above, pertinent findings include: Tender right upper quadrant no guarding no rebound some mild tachypnea but no conversational dyspnea appreciated not hypoxic or tachycardic. Lab Test results independently reviewed as above. Pertinent findings: CBC shows leukocytosis of 25.4 with significant left shift CMP sodium is 133 creatinine 1.0 glucose 116 Lactate is 1.5 with repeat of 1.4 Bilirubin elevated 2.9 normal AST normal ALT Troponin negative Blood cultures pending Independently reviewed EKG as above Sinus rhythm no ischemia Imaging studies independently reviewed: MRCP has not show evidence of choledocholithiasis, however trace pleural effusion noted CT chest: Moderately sized left pleural effusion with high degree of loculation. This pleural effusion is clearly increase in size compared to recent CT Consultations: Dr. Lane has been involved in the case. Requested MRCP. Initially said he would admit the patient however did request a chest CT Dr. Cesar consulted for medical management awaiting final read of chest CT but concerned there may be pneumonia Treatments: Zosyn Dilaudid Re-evaluations: Patient reports that pain is much better after his 1st dose of Dilaudid Discussion: Patient 39-year-old healthy male presenting to day with ongoing right upper quadrant pain. This is his 3rd visit to the emergency department in 4 days. He has a progressive increasing leukocytosis it started at 13 went to 16 in his now 25. He has a normal lactic acid. Really complaining of right upper quadrant pain they. There is no evidence on any imaging CT ultrasound or MRI that suggest he has gallbladder problem. No evidence of acute cholecystitis choledocholithiasis or cholelithiasis. He has a progressive rapidly worsening right-sided pleural effusion, with high degree of loculation on the CT. Patient initially admitted upstairs he is speaking in full sentences mildly tachypneic. Discharge Plan Departure Patient Disposition: Admitted as Observation Clinical Impression: Pneumonia, Pleural effusion Admit Date/Time: 01/14/25 16:43 Admit Provider: Desirae Cesar
[2025-01-14 14:32] LABS: Hematocrit 44.7 % (41-53); Hemoglobin 15.6 g/dL (13.5-17.5); Mean Corpuscular HGB Conc 34.8 % (30-36); Mean Corpuscular Hemoglobin 31.1 PG (26-34); Mean Corpuscular Volume 89.4 fL (80-100); Platelet Count 425 X10^3/uL (150-400)
[2025-01-14 14:34] LABS: Add Manual Diff / Slide Review YES
[2025-01-14 14:44] LABS: Lactate (Lactic Acid) 1.5 mmol/L (0.7-2.1)
[2025-01-14 14:45] LABS: Alanine Aminotransferase 40 IU/L (<50); Albumin 4.5 g/dL (3.5-5.0); Albumin Globulin Ratio 1.1 (1.0-2.8); Alkaline Phosphatase 59 U/L (38-126); Blood Urea Nitrogen 12 mg/dL (9-20); Calcium 9.1 mg/dL (8.4-10.2); Carbon Dioxide 24 mmol/L (22-32); Chloride 99 mmol/L (98-107); Estimated Glomerular Filt Rate > 60 mL/min (>60); Globulin 4.1 g/dL (1.7-4.1); Glucose 115 mg/dL (70-99); HEMOLYSIS < 15 (0-50); Lipase 111 U/L (23-300); Potassium 4.3 mmol/L (3.4-5.1); Sodium 133 mmol/L (137-145); Total Protein 8.6 g/dL (6.3-8.2)
[2025-01-14 14:49] LABS: Band Neutrophils Percent 8.0 % (3-7); Lymphocytes Percent Manual 9.0 % (25-45); Monocytes Percent Manual 4.0 % (2-11); Neutrophils Absolute Manual 22098 /uL (3000-5900); Segmented Neutrophils Percent 79.0 % (38-70); Total Cells Counted 100
[2025-01-14 14:50] LABS: RBC Morphology Normal Morphology
[2025-01-14 14:57] LABS: Troponin I < 0.012 ng/mL (0.01-0.034)
--- NOTE | 2025-01-14 15:17 | DI.MRI.S_ITS ---
PROCEDURE: MR ABDOMEN WO/W CON INDICATIONS: Choledocholithiasis TECHNIQUE: Coronal HASTE, axial 2D FLASH in- and [id number]; axial breath-hold T2 FSE. Dynamic axial VIBE during the administration of contrast; post-contrast coronal VIBE or 2D FLASH with fat saturation from the hepatic dome to the iliac crests. Optional diffusion weighted imaging and ADC may be performed. COMPARISON: [facility], CR, XR CHEST 1V, 01/12/2025, 22:09. [facility], US, US ABDOMEN LIMITED, 01/12/2025, 22:45. FINDINGS: Image quality: This examination is limited by involuntary motion artifact. Lung bases: There is a moderate right-sided pleural effusion, with overlying atelectasis. Liver: No solid mass. Gallbladder: No gallstones or wall thickening. Biliary ducts: No biliary dilation. Pancreas: No ductal dilation. Spleen: Size is within normal limits. Adrenal Glands: No adrenal nodules. Kidneys and Ureters: No hydronephrosis. No solid mass. No complex renal cystic lesion which requires follow up. Stomach and Bowel: Normal colonic caliber, without significant wall thickening. Peritoneum: No abnormal intraperitoneal fluid. No free air. Ventral Wall: No hernia. Abdominal Nodes: No retroperitoneal or mesenteric adenopathy by size criteria. Vessels: Aorta and inferior vena cava are normal in size. Bones: No aggressive osseous abnormality. IMPRESSION: No biliary ductal dilatation is seen. No biliary ductal stones are seen. A moderate right-sided pleural effusion is seen. Motion limited study. Dictated by: Jose Faust M.D. on 01/14/2025 at 15:35 Approved by: Jose Faust M.D. on 01/14/2025 at 15:36
[2025-01-14 15:21] LABS: Culture Indicated Urine Cult Not Indicated
--- NOTE | 2025-01-14 16:37 | P.HP_ITS ---
History of Present Illness History of Present Illness Date Patient Seen: 01/14/25 Time Patient Seen: 16:37 Chief complaint: abd pain Narrative: Barrie Stauffer is a 39 year old man who has had severe right sided abdominal pain and pain with inspiration for about one week now. He has been to the emergency room several times. He had a CT scan on 01/12 which showed a contracted gallbladder with no obvious stones. He returned on 01/12 and an ultrasound showed no stones and no cholecystitis. His WBC was 16 and bilirubin 1.8. His pain has worsened and he came back today. His WBCs today are 25k and bilirubin is 2.9. An MRCP was performed that showed no evidence of a gallbladder or biliary pathology. There appeared to be a left-sided pleural effusion. A CT scan was performed which showed a loculated left pleural effusion. [facility] Medical History (Updated 01/28/25 @ 00:01 by ) GERD (gastroesophageal reflux disease) Social History (Updated 01/14/25 @ 18:39 by Desirae Cesar MD) household members: spouse and family substance use type: does not use Meds Home Medications and Allergies Home Medications ?Medication ?Instructions ?Recorded ?Confirmed ?Type sucralfate 1 gram tablet (Carafate) 1 g PO BID #30 tab s 01/13/25 01/14/25 Rx betamethasone dipropionate 0.05 % topical DAILY History topical ointment Held on 01/14/25. Instructions: Provider's Order ketoconazole 2 % topical cream applic topical BID 12/22 08/14 History Allergies Allergy/AdvReac Type Severity Reaction Status Date / Time No Known Drug Allergies Allergy Verified 02/05/25 15:28 Exam Vital Signs (past 8 hours): - 01/14/25 12:12 01/14/25 14:28 01/14/25 14:30 Temperature 98 F Pulse Rate 114 H 104 H 105 H Respiratory Rate 25 H Blood Pressure 162/84 H Pulse Oximetry 92 90 L 90 L Oxygen Delivery Method Room Air Oxygen Flow Rate 01/14/25 14:32 01/14/25 14:32 01/14/25 14:35 Temperature Pulse Rate 103 H 101 H Respiratory Rate 48 H 45 H Blood Pressure 141/74 H Pulse Oximetry 90 L 88 L Oxygen Delivery Method Room Air Oxygen Flow Rate 01/14/25 14:40 01/14/25 14:45 01/14/25 14:50 Temperature Pulse Rate 101 H 100 H 101 H Respiratory Rate 45 H 43 H 28 H Blood Pressure Pulse Oximetry 89 L 91 93 Oxygen Delivery Method Room Air Nasal Cannula Oxygen Flow Rate 2 01/14/25 14:55 01/14/25 15:00 01/14/25 15:00 Temperature Pulse Rate 100 H 97 H Respiratory Rate 24 22 Blood Pressure 139/69 Pulse Oximetry 93 93 Oxygen Delivery Method Nasal Cannula Oxygen Flow Rate 1 Oxygen Delivery Method Nasal Cannula Oxygen Flow Rate 1 Narrative Exam Narrative: In obvious distress and short of breath No Morfin sign Objective Labs 01/14/25 14:21 01/14/25 14:21 Labs: Laboratory Results - last 24 hr 01/14/25 01/14/25 14:21 14:47 WBC 25.4 H D RBC 5.00 Hgb 15.6 Hct 44.7 MCV 89.4 MCH 31.1 MCHC 34.8 RDW 13.4 Plt Count 425 H Neut % (Auto) Not Reportable Lymph % (Auto) Not Reportable [place] % (Auto) Not Reportable Eos % (Auto) Not Reportable Baso % (Auto) Not Reportable Lymph # (Auto) Not Reportable [place] # (Auto) Not Reportable Baso # (Auto) Not Reportable Total Counted 100 Seg Neutrophils % 79.0 H Band Neutrophils % 8.0 H Lymphocytes % (Manual) 9.0 L Monocytes % (Manual) 4.0 Neutrophils # (Manual) 10739 H Platelet Estimate Increased on smear RBC Morphology Normal morphology Sodium 133 L Potassium 4.3 Chloride 99 Carbon Dioxide 24 BUN 12 Creatinine 1.06 Estimated GFR > 60 BUN/Creatinine Ratio 11.3 Glucose 115 H Lactate 1.5 Calcium 9.1 Total Bilirubin 2.9 H AST 34 ALT 40 Alkaline Phosphatase 59 Troponin I < 0.012 Total Protein 8.6 H Albumin 4.5 Globulin 4.1 Albumin/Globulin Ratio 1.1 Lipase 111 Urine RBC 0-1/hpf Urine WBC 0-1/hpf Ur Squamous Epith Cells 0-1 /hpf Urine Bacteria Occasional (0-1) Ur Culture Indicated? Cult not indicated Vol Urine Centrifuged 10ml (spun) Assessment & Plan Assessment and plan (1) Pleural effusion: Status: Acute Plan Loculated pleural effusion. Needs transfer for potential VATS procedure. Time-Based Coding :: [TOTAL MINUTES] spent with patient and on the chart (including review of chart, obtaining history, exam, reviewing outside data, placing orders, documenting exam and treatment plan, and counseling patient) on [DATE]. 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
[2025-01-14] MEDS: PIPERACILLIN/TAZO 4.5 GM in SODIUM CHLORIDE 0.9% 100 ML IV ×2 (16:46→20:13)
--- NOTE | 2025-01-14 16:49 | DI.CT.S_ITS ---
PROCEDURE: CT CHEST W CON INDICATIONS: right pleural effusion, high wbc high jose TECHNIQUE: After the administration of intravenous contrast, 5 mm thick sections acquired from the pulmonary apices to the posterior costophrenic angles. 1 mm axial lung, 5 mm thick coronal and sagittal reformats and 7 mm axial MIP were acquired. For radiation dose reduction, the following was used: automated exposure control, adjustment of mA and/or kV according to patient size. COMPARISON: [facility], CT, CT ANGIO CHEST PE PROTOCOL, 01/11/2025, 1:14. [facility], MR, MR ABDOMEN WO/W CON, 01/14/2025, 15:34. [facility], CR, XR CHEST 1V, 01/12/2025, 22:09. FINDINGS: Image quality: Diagnostic. Lower Neck: No enlarged lymph nodes. Thyroid: No thyroid nodules which require sonographic follow up, per consensus guidelines. Axillae: No enlarged lymph nodes. Chest Wall: Unremarkable. Bones: Unremarkable. Lungs and Pleura: There is a moderate right-sided pleural effusion seen, with a high degree of loculation. Associated overlying atelectasis can be seen. No pneumothorax is seen. The left lung appears clear. Heart: Heart size is normal. No pericardial effusion. Thoracic Vessels: The aorta and pulmonary arteries demonstrate normal size. Mediastinum and [place]: The mediastinum is shifted slightly to the left. No enlarged lymph nodes. Esophagus: No wall thickening. No hiatal hernia. Upper Abdomen: An enlarged, fatty infiltrated liver is seen. The visualized portions of the upper abdominal structures are otherwise unremarkable for imaging technique. IMPRESSION: A moderately sized left-sided pleural effusion is seen, with a high degree of loculation. This pleural effusion is clearly increased in size compared to the recent prior CT dated 01/11/2025. There is a mild degree of associated shift of the mediastinum to the left. Additional findings: Enlarged, fatty infiltrated liver. Dictated by: Jose Faust M.D. on 01/14/2025 at 16:46 Approved by: Jose Faust M.D. on 01/14/2025 at 16:48
[2025-01-14 17:08] LABS: Lactate (Lactic Acid) 1.4 mmol/L (0.7-2.1)
--- NOTE | 2025-01-14 18:07 | PM.HP.1 ---
History of Present Illness History of Present Illness Date Patient Seen: 01/14/25 Time Patient Seen: 18:08 Chief complaint: abd pain Narrative: This is a 39-year-old male with a history of GERD who presents with rapid onset right chest pleural effusion/suspected empyema. He has had shortness of breath and right upper quadrant abdominal pain for 1 week and has been seen in the ED 3 times. This is now his 2nd CT and remarkably the 1st CT on 01/11 only showed a very small pleural effusion. He was worked up for a gallbladder infection due to the location of his pain and the bilirubin of 2.9. He underwent MRCP. He was admitted to the floor by General surgery and Medicine was asked to consult and then to take over care. His CT scan shows a near complete fluid replacement of the entire right hemithorax with a shift to the left. He is dyspneic at rest. His white blood count is 25.4 (16.2 yesterday) with a bilirubin of 2.9 and a lactate of only 1.5. This pleural effusion looks like it has probably turned into an empyema overnight? He will need to be rapidly transferred to a hospital with pulmonology/thoracic surgery on-call coverage. Assessment and plan: Large right pleural effusion/probable empyema, present on admission. Active. -rapid onset over the last week and especially over the last 3 days of right hemithorax fluid buildup to the point that it is shifting the mediastinum to the left. -white blood count allyn from 16.2 yesterday up to 25.4 today. -patient needs rapid attention including imaging guided thoracentesis due to the loculations -continue IV Unasyn. Add IV vancomycin. -transfer to the ICU at this time and to a tertiary referral center as soon as can be arranged. -Dilaudid for pleuritis. -he is full code Hyperbilirubinemia, present on admission. Active. -this appears to be instead of the etiology of his pain, a reactive elevation caused by the pleural effusion? He is full code Enoxaparin for DVT prevention His is his backup decision maker. [facility] Medical History (Updated 01/14/25 @ 18:38 by Desirae Cesar MD) GERD (gastroesophageal reflux disease) Social History (Updated 01/14/25 @ 18:39 by Desirae Cesar MD) substance use type: does not use Meds Home Medications and Allergies Home Medications ?Medication ?Instructions ?Recorded ?Confirmed ?Type naproxen 500 mg tablet 500 mg PO BID 7 days #14 tabs 01/11/25 Rx omeprazole 20 mg capsule,delayed 20 mg PO DAILY upper abdominal 01/13/25 Rx release pain 30 days #30 caps sucralfate 1 gram tablet (Carafate) 1 g PO BID #30 tabs 01/13/25 Rx Allergies Allergy/AdvReac Type Severity Reaction Status Date / Time No Known Drug Allergies Allergy Verified 01/14/25 12:12 Review of Systems Review of Systems Narrative: Positive for shortness of breath, pleuritic chest pain from the right upper quadrant all the way up to the right shoulder, shortness of breath and chills Negative for fevers, coughing, nausea, vomiting, dysuria, rashes, joint swelling, bleeding, headaches, new allergies. Exam Vital Signs (past 8 hours): - 01/14/25 12:12 01/14/25 14:28 01/14/25 14:30 Temperature 98 F Pulse Rate 114 H 104 H 105 H Respiratory Rate 25 H Blood Pressure 162/84 H Pulse Oximetry 92 90 L 90 L Oxygen Delivery Method Room Air Oxygen Flow Rate 01/14/25 14:32 01/14/25 14:32 01/14/25 14:35 Temperature Pulse Rate 103 H 101 H Respiratory Rate 48 H 45 H Blood Pressure 141/74 H Pulse Oximetry 90 L 88 L Oxygen Delivery Method Room Air Oxygen Flow Rate 01/14/25 14:40 01/14/25 14:45 01/14/25 14:50 Temperature Pulse Rate 101 H 100 H 101 H Respiratory Rate 45 H 43 H 28 H Blood Pressure Pulse Oximetry 89 L 91 93 Oxygen Delivery Method Room Air Nasal Cannula Oxygen Flow Rate 2 01/14/25 14:55 01/14/25 15:00 01/14/25 15:00 Temperature Pulse Rate 100 H 97 H Respiratory Rate 24 22 Blood Pressure 139/69 Pulse Oximetry 93 93 Oxygen Delivery Method Nasal Cannula Oxygen Flow Rate 1 01/14/25 15:05 01/14/25 15:10 01/14/25 15:15 Temperature Pulse Rate 96 H 96 H 95 H Respiratory Rate 32 H 36 H 40 H Blood Pressure Pulse Oximetry 93 92 92 Oxygen Delivery Method Oxygen Flow Rate 01/14/25 15:20 01/14/25 15:25 01/14/25 15:30 Temperature Pulse Rate 101 H 99 H 103 H Respiratory Rate 49 H 44 H Blood Pressure Pulse Oximetry 93 93 93 Oxygen Delivery Method Oxygen Flow Rate 01/14/25 16:52 01/14/25 16:53 01/14/25 16:55 Temperature Pulse Rate 107 H 106 H Respiratory Rate Blood Pressure 142/100 H Pulse Oximetry 90 L 90 L Oxygen Delivery Method Oxygen Flow Rate 01/14/25 17:10 01/14/25 17:15 01/14/25 17:20 Temperature Pulse Rate 109 H 109 H 109 H Respiratory Rate Blood Pressure Pulse Oximetry 91 91 92 Oxygen Delivery Method Oxygen Flow Rate 01/14/25 17:25 01/14/25 17:30 01/14/25 17:35 Temperature Pulse Rate 109 H 106 H 105 H Respiratory Rate Blood Pressure Pulse Oximetry 93 93 94 Oxygen Delivery Method Oxygen Flow Rate Oxygen Delivery Method Nasal Cannula Oxygen Flow Rate 1 Narrative Exam Narrative: Alert and oriented x3. Severe distress from respiratory compromise. Pupils equally round and reactive to light and accommodation. Extraocular muscles are intact. Sclerae are pink nonicteric. No lymph nodes are felt head, neck, supraclavicular area. There is no signs of severe superior vena cava syndrome. There is no thyromegaly. JVD is less than 6 cm. No carotid bruits are heard. Heart is regular rate and rhythm without murmur. Lungs have heavy wheezes on the right side. Clear on the left side. Abdomen is obese, bowel sounds positive, no significant tenderness, no organomegaly. With very deep palpation in the right upper quadrant he has a small amount of tenderness. Extremities have no ankle edema. Skin has no jaundice or the rash. Motor function is 5/5 throughout. Cranial nerves 2-12 test intact. There is no tremor. Reflexes are symmetric. Objective Labs 01/14/25 14:21 01/14/25 14:21 Labs: Laboratory Results - last 24 hr 01/14/25 01/14/25 01/14/25 14:21 14:47 16:37 WBC 25.4 H D RBC 5.00 Hgb 15.6 Hct 44.7 MCV 89.4 MCH 31.1 MCHC 34.8 RDW 13.4 Plt Count 425 H Neut % (Auto) Not Reportable Lymph % (Auto) Not Reportable [place] % (Auto) Not Reportable Eos % (Auto) Not Reportable Baso % (Auto) Not Reportable Lymph # (Auto) Not Reportable [place] # (Auto) Not Reportable Baso # (Auto) Not Reportable Total Counted 100 Seg Neutrophils % 79.0 H Band Neutrophils % 8.0 H Lymphocytes % (Manual) 9.0 L Monocytes % (Manual) 4.0 Neutrophils # (Manual) 73237 H Platelet Estimate Increased on smear RBC Morphology Normal morphology Sodium 133 L Potassium 4.3 Chloride 99 Carbon Dioxide 24 BUN 12 Creatinine 1.06 Estimated GFR > 60 BUN/Creatinine Ratio 11.3 Glucose 115 H Lactate 1.5 1.4 Calcium 9.1 Total Bilirubin 2.9 H AST 34 ALT 40 Alkaline Phosphatase 59 Troponin I < 0.012 Total Protein 8.6 H Albumin 4.5 Globulin 4.1 Albumin/Globulin Ratio 1.1 Lipase 111 Urine RBC 0-1/hpf Urine WBC 0-1/hpf Ur Squamous Epith Cells 0-1 /hpf Urine Bacteria Occasional (0-1) Ur Culture Indicated? Cult not indicated Vol Urine Centrifuged 10ml (spun) Assessment & Plan Time-Based Coding :: [TOTAL MINUTES] spent with patient and on the chart (including review of chart, obtaining history, exam, reviewing outside data, placing orders, documenting exam and treatment plan, and counseling patient) on [DATE].
[2025-01-14 18:45] LABS: INR 1.3 (0.9-1.3); Prothrombin Time 15.1 SECONDS (9.4-12.5)
[2025-01-14] MEDS: LACTATED RINGERS 1,000 ML 100 ML IV (20:09)
[2025-01-14 20:15] LABS: MRSA (Nasal) PCR NOT DETECTED (Not Detect)
[2025-01-14] MEDS: KETOROLAC 30 MG/ML VIAL IV (20:54)
[2025-01-14] MEDS: VANCOMYCIN 2,000 MG/400 ML PIGGYBACK 200 MG IV (21:29)
--- NOTE | 2025-01-14 22:02 | PC.NURSE ---
pt to transfer to [facility]. Called report
--- NOTE | 2025-01-14 22:38 | PC.NURSE ---
Report given to transport. Transport has taken pt by ambulance. to follow. All belongings with .
== END 2025-01-14 22:35 | disposition short-term general hospital (02) | DRG 186 ==
LOC: ED 16:42 → AC 18:15 → ICU 23:18 → AC 01-16 06:28 → ICU 01-16 06:28
PROVIDERS: Admitting Provider Family Medicine; Emergency Provider Emergency Medicine; Referring Provider Emergency Medicine; Visit Provider Family Medicine
DX: J90 Pleural effusion, not elsewhere classified (principal); J86.9 Pyothorax without fistula; E80.6 Other disorders of bilirubin metabolism
CPT/HCPCS: 36415; 71260; 74183; 80053; 81003; 81015; 82962; 83605; 83690; 84484; 85007; 85025; 85610; 87040; 87797; 93005; 93010; 96365; 96375; 99285; G0378; A9579; J1171; J1885; J2543; J3375; J7050; J7120; Q9967

== ENCOUNTER → 2025-02-13 06:45 | Outpatient (CLI) | payer SELFPAY ==
[2025-01-14 16:43] VITALS: BMI 41.3
--- NOTE | 2025-02-13 06:46 | DI.CT.S_ITS ---
PROCEDURE: CT CHEST W CON INDICATIONS: empyema TECHNIQUE: After the administration of intravenous contrast, 5 mm thick sections acquired from the pulmonary apices to the posterior costophrenic angles. 1 mm axial lung, 5 mm thick coronal and sagittal reformats and 7 mm axial MIP were acquired. For radiation dose reduction, the following was used: automated exposure control, adjustment of mA and/or kV according to patient size. COMPARISON: [facility], CT, CT CHEST W CON, 01/14/2025, 17:00. FINDINGS: Image quality: Diagnostic. Lower Neck: No enlarged lymph nodes. Thyroid: No thyroid nodules which require sonographic follow up, per consensus guidelines. Axillae: No enlarged lymph nodes. Chest Wall: Unremarkable. Bones: Unremarkable. Lungs and Pleura: Very small right-sided pleural effusion. Peripheral rounded atelectasis is present. A few small solid pulmonary nodules are present, largest measuring 5-6 mm in the left lower lobe (series 3, image 207). Heart: Heart size is normal. No pericardial effusion. Thoracic Vessels: The aorta and pulmonary arteries demonstrate normal size. Mediastinum and [place]: No enlarged lymph nodes. Esophagus: No wall thickening. No hiatal hernia. Upper Abdomen: Moderate hepatic steatosis. IMPRESSION: Significant improvement of right-sided lung findings, with very mild residual pleural effusion and peripheral rounded atelectasis. Consider six-month follow-up to ensure resolution of the regions of rounded atelectasis. Pulmonary micronodules. Consider 12 month follow-up if at high risk for developing lung cancer, per Fleischner Society guidelines. Dictated by: Junior Yap M.D. on 02/13/2025 at 9:28 Approved by: Junior Yap M.D. on 02/13/2025 at 9:31
== END ==
LOC: CT 06:46
PROVIDERS: Referring Provider Internal Medicine Infectious Disease; Visit Provider Internal Medicine Infectious Disease
DX: J86.9 Pyothorax without fistula (principal); J90 Pleural effusion, not elsewhere classified; J98.11 Atelectasis; R91.8 Other nonspecific abnormal finding of lung field; K76.0 Fatty (change of) liver, not elsewhere classified
CPT/HCPCS: 71260; Q9967